=== PATIENT | female | born 2000 | race Caucasian/White ===

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

== ENCOUNTER 2023-03-13 18:50 | Emergency (ER) | payer SELFPAY ==
--- NOTE | 2023-03-13 20:40 | RAD REPORT ---
EXAM DESCRIPTION: US - Abdomen Exam Limited - 03/13/2023 8:27 pm CLINICAL HISTORY: Abd pain;Nausea / vomiting COMPARISON: Abdomen Pelvis Wo Contrast dated 03/10/2021 FINDINGS: The gallbladder demonstrates shadowing gallstone. One of the stones is present at the gall bladder neck and appears immobile. No pericholecystic fluid or gallbladder wall thickening. The commo n bile duct is normal measuring 4 mm. The liver demonstrates no findings of intrahepatic biliary dilatation. IMPRESSION: Cholelithiasis. Though no sonographic evidence of acute cholecystitis identified at this time, a stone is impacted at the gallbladder neck. Very early or mild cholecystitis difficult to ent irely exclude.
[2023-03-13] MEDS ORDERED: ONDANSETRON 4 MG/2 ML VIAL ONE (21:11)
[2023-03-13 21:12] LABS: Hematocrit 37.6 % (36.0-45.0); Lymphocytes % 16.5 % (15.3-44.8); MCV 76.1 fL (80-100); MPV 7.1 fL (7.6-11.3); RBC Red Blood Cell Count 4.94 M/uL (3.86-4.86)
[2023-03-13] MEDS ORDERED: DICYCLOMINE HCL 20 MG/2 ML AMP IM ONE (21:12)
[2023-03-13] MEDS ORDERED: NA CHLORIDE 0.9% 1,000 ML ONE (21:12)
[2023-03-13] MEDS ORDERED: FAMOTIDINE 20 MG/2 ML VIAL IV ONE (21:12)
[2023-03-13 21:21] LABS: Urine Bacteria <20 /HPF (<20); Urine Bilirubin NEGATIVE (Negative); Urine Blood 1+ (Negative); Urine Clarity Clear (Clear); Urine Color Light-Yellow (Yellow); Urine Glucose NEGATIVE (Negative); Urine Mucus Slight /HPF (None Seen); Urine Protein 1+ (Negative); Urine Urobilinogen Normal (Normal)
[2023-03-13 21:32] LABS: Albumin 3.3 g/dL (3.4-5.0); Bilirubin Total 0.3 mg/dL (0.2-1.0); Potassium 3.9 mEq/L (3.5-5.1); Protein, Total 8.2 g/dL (6.4-8.2)
--- NOTE | 2023-03-13 22:31 | RAD REPORT ---
EXAM DESCRIPTION: CTAbdomen Pelvis W Contrast - 03/13/2023 10:19 pm CLINICAL HISTORY: NAUSEA / VOMITING COMPARISON: Abdomen Exam Limited dated 03/13/2023 TECHNIQUE: CT of the abdomen and pelvis was performed. All CT scans are performed using dose optimization technique as appropriate and may include automated exposure control or mA/KV adjustment according to patient size. FINDINGS: Lower chest: No acute abnormality. Mild circumferential thickened distal esophagus suggest ing esophagitis. Liver: No acute abnormality or suspicious lesions. Biliary: No biliary ductal dilatation. Stomach: No significant focal abnormality. Duodenum: No significant focal abnormality. Pancreas: No significant abnormality. Spleen: No significant abnormality. Adrenal: No suspicious lesions. Kidney/ureter: No hydronephrosis. No renal calculi. Normal appendix. Retroperitoneum: No retroperitoneal adenopathy. Vascular: No aneurysm. Bowel: No significant focal abnormality. Peritoneum: No ascites or free air. Bladder: Grossly unremarkable. Reproductive: Simple appearing left adnexal cyst measuring 4.5 cm. In a premenopausal female, this do es not require follow-up. Bones: No acute fracture. Other: n/a IMPRESSION: No acute intra-abdominal or pelvic finding. Normal appendix.
--- NOTE | 2023-03-13 23:01 | EDPHYS ---
Physician Documentation [facility] Name: Sherri Robbins Age: 22 yrs Sex: Female : 2000 Arrival Date: 03/13/2023 Time: 18:50 Bed 16 Private MD: ED Physician Chuy Alanis HPI: 03/13 19:25 This 22 yrs old Female presents to ER via Ambulatory with complaints of Abdominal Pain, cp Nausea/Vomiting. 19:25 The patient presents with abdominal pain in the upper abdomen. cp 19:25 Onset: The symptoms/episode began/occurred this morning, about 0400. cp 19:25 The symptoms radiate to back. Associated signs and symptoms: Pertinent positives: cp nausea and vomiting, diarrhea, Pertinent negatives: fever, palpitations, vomiting blood. The symptoms are described as constant. Severity of pain: in the emergency department the pain is unchanged despite home interventions. Historical: - Allergies: 19:19 Codeine; nj1 - PMHx: 19:19 GALLSTONES; nj1 - PSHx: 19:19 None; nj1 - Immunization history:: Client reports receiving the 2nd dose of the Covid vaccine. - Social history:: Smoking status: Reported history of juuling and/or vaping. ROS: 19:30 Constitutional: Negative for body aches, chills, fever. cp 19:30 Eyes: Negative for injury, pain, redness, and discharge. cp 19:30 Cardiovascular: Negative for chest pain, palpitations. 19:30 Respiratory: Negative for cough, shortness of breath, wheezing. 19:30 Abdomen/GI: Positive for abdominal pain, nausea and vomiting, Negative for diarrhea, constipation, hematemesis. Exam: 19:33 Constitutional: The patient appears in no acute distress, alert, awake, non-toxic, well cp developed, well nourished, obese, uncomfortable. 19:33 Head/Face: Normocephalic, atraumatic. cp 19:33 Eyes: Periorbital structures: appear normal, Conjunctiva: normal, no exudate, no injection, Sclera: no appreciated abnormality, Lids and lashes: appear normal, bilaterally. 19:33 ENT: External ear(s): are unremarkable, Nose: is normal, Mouth: Lips: moist, Oral mucosa: pink and intact, moist, Posterior pharynx: is normal, airway is patent, no erythema, no exudate. 19:33 Neck: ROM/movement: is normal, is supple, without pain, no range of motions limitations. Vital Signs: 19:16 BP 133 / 72; Pulse 82; Resp 18; Temp 97.5(TE); Pulse Ox 98% on R/A; Weight 129.27 kg; nj1 Height 5 ft. 2 in. ; Pain 6/10; 23:17 BP 108 / 54; Pulse 77; Resp 16; Pulse Ox 97% on R/A; jb4 19:16 Body Mass Index 52.13 (129.27 kg, 157.48 cm) nj1 19:16 Pain Scale: Adult nj1 MDM: 19:20 Patient medically screened. иван 21:00 Differential diagnosis: cholecystitis, Cholelithiasis, gastritis, pancreatitis, Peptic cp Ulcer Disease, Perf. Duodenal Ulcer, Perf. Gastric Ulcer, Pyelonephritis, Ureterolithiasis, urinary tract infection. 23:00 Data reviewed: vital signs, nurses notes, lab test result(s), radiologic studies, CT cp scan, plain films. 23:00 Consideration of Admission/Observation Escalation of care including cp admission/observation considered. I considered the following discharge prescriptions or medication management in the emergency department Medications were administered in the Emergency Department. See MAR. Counseling: I had a detailed discussion with the patient and/or guardian regarding: the historical points, exam findings, and any diagnostic results supporting the discharge/admit diagnosis, lab results, radiology results, the need for outpatient follow up, a general surgeon, to return to the emergency department if symptoms worsen or persist or if there are any questions or concerns that arise at home. Response to treatment: the patient's symptoms have markedly improved after treatment, and as a result, I will discharge patient. ED course: VSS. Pain and nausea markedly improved. Will discharge to home for continued monitoring. 03/13 19:19 Order name: CBC with Diff; Complete Time: 21:42 cp 03/13 21:42 Interpretation: Normal except: WBC 12.30; RBC 4.94; MCV 76.1; MCH 24.3; RDW 16.8; MPV cp 7.1; ODIN% 77.0; NEUT A 9.4. 03/13 19:19 Order name: CMP; Complete Time: 21:42 cp 03/13 21:42 Interpretation: Normal except: NA 134; ALT 61. cp 03/13 19:19 Order name: Lipase; Complete Time: 21:42 cp 03/13 19:19 Order name: Test, Urine; Complete Time: 21:42 cp 03/13 19:19 Order name: Urinalysis w/ reflexes; Complete Time: 21:42 cp 03/13 19:59 Order name: US Abdomen Limited: gallbladder; Complete Time: 20:43 cp 03/13 21:45 Order name: CT Abd/Pelvis - IV Contrast Only; Complete Time: 22:44 cp 03/13 19:19 Order name: IV Saline Lock; Complete Time: 21:21 cp 03/13 19:19 Order name: Labs collected and sent; Complete Time: 21:21 cp 03/13 22:45 Order name: PO challenge; Complete Time: 23:15 cp Administered Medications: 21:20 Drug: Dicyclomine IM 20 mg Route: IM; Site: left gluteus; jb4 21:21 Drug: NS 0.9% IV 1000 ml Route: IV; Rate: 1 bolus; Site: left antecubital; jb4 21:21 Drug: Famotidine IVP 20 mg Route: IVP; Site: left antecubital; jb4 21:21 Drug: Ondansetron IVP 4 mg Route: IVP; Site: left antecubital; jb4 Disposition Summary: 03/13/23 23:00 Discharge Ordered Location: Home cp Problem: new cp Symptoms: have improved cp Condition: Stable cp Diagnosis - Nausea with vomiting, unspecified cp - Other cholelithiasis without obstruction cp Followup: cp - With: Tyler Collins MD - When: 2 - 3 days - Reason: Recheck today's complaints Discharge Instructions: - Discharge Summary Sheet cp - Nausea and Vomiting, Adult cp - Cholelithiasis cp Forms: - Medication Reconciliation Form cp - Thank You Letter cp - Antibiotic Education cp - Prescription Opioid Use cp Prescriptions: - Protonix 40 mg Oral Tablet - take 1 tablet by ORAL route once daily; 30 tablet; Refills: 0, Product cp Selection Permitted - Zofran 4 mg Oral Tablet - take 1 tablet by ORAL route every 12 hours As needed; 20 tablet; Refills: 0, cp Product Selection Permitted Signatures: Dispatcher [employer] EDChuy Sanders MD MD cha Page, Corey, PA PA cp Khang La RN RN jb4 Isela Willett RN RN nj1 Corrections: (The following items were deleted from the chart) 21:42 21:42 Normal except: NA 134. cp cp
--- NOTE | 2023-03-13 23:01 | ER ---
Nurse's Notes [facility] Name: Sherri Robbins Age: 22 yrs Sex: Female : 2000 Arrival Date: 03/13/2023 Time: 18:50 Bed 16 Private MD: Diagnosis: Nausea with vomiting, unspecified;Other cholelithiasis without obstruction Presentation: 03/13 19:16 Chief complaint: Patient states: Upper abdominal pain since 4am today. Vomited about 25 nj1 times since. History of gallstones. Coronavirus screen: Vaccine status: Patient reports receiving the 2nd dose of the covid vaccine. Ebola Screen: Patient denies travel to an Ebola-affected area in the 21 days before illness onset. Initial Sepsis Screen: Does the patient meet any 2 criteria? No. Patient's initial sepsis screen is negative. Does the patient have a suspected source of infection? No. Patient's initial sepsis screen is negative. Risk Assessment: Do you want to hurt yourself or someone else? Patient reports no desire to harm self or others. Onset of symptoms was March 13, 2023 at 04:00. 19:16 Method Of Arrival: Ambulatory [facility] 19:16 Acuity: TIMO 3 nj1 Historical: - Allergies: 19:19 Codeine; nj1 - PMHx: 19:19 GALLSTONES; nj1 - PSHx: 19:19 None; nj1 - Immunization history:: Client reports receiving the 2nd dose of the Covid vaccine. - Social history:: Smoking status: Reported history of juuling and/or vaping. Screenin:17 [facility] ED Fall Risk Assessment (Adult) History of falling in the last 3 months, jb4 including since admission No falls in past 3 months (0 pts) Confusion or Disorientation No (0 pts). Abuse screen: Denies threats or abuse. Nutritional screening: No deficits noted. Tuberculosis screening: No symptoms or risk factors identified. Assessment: 20:30 General: Appears in no apparent distress. comfortable, Behavior is calm, cooperative, jb4 appropriate for age. Pain: Complains of pain in right upper quadrant Pain does not radiate. Pain currently is 8 out of 10 on a pain scale. Neuro: Level of Consciousness is awake, alert, obeys commands, Oriented to person, place, time, situation. Cardiovascular: Patient's skin is warm and dry. Respiratory: Airway is patent Respiratory effort is even, unlabored, Respiratory pattern is regular, symmetrical. GI: Abdomen is non-distended, obese, Reports nausea, vomiting. : No signs and/or symptoms were reported regarding the genitourinary system. EENT: No signs and/or symptoms were reported regarding the EENT system. Derm: Skin is intact, Skin is pink, warm \T\ dry. Musculoskeletal: Circulation, motion, and sensation intact. Range of motion: intact in all extremities. 22:00 Reassessment: Patient appears in no apparent distress at this time. Patient and/or jb4 family updated on plan of care and expected duration. Pain level reassessed. Patient is alert, oriented x 3, equal unlabored respirations, skin warm/dry/pink. 23:17 Reassessment: Patient appears in no apparent distress at this time. Patient and/or jb4 family updated on plan of care and expected duration. Pain level reassessed. Patient is alert, oriented x 3, equal unlabored respirations, skin warm/dry/pink. Vital Signs: 19:16 BP 133 / 72; Pulse 82; Resp 18; Temp 97.5(TE); Pulse Ox 98% on R/A; Weight 129.27 kg; nj1 Height 5 ft. 2 in. ; Pain 6/10; 23:17 BP 108 / 54; Pulse 77; Resp 16; Pulse Ox 97% on R/A; jb4 19:16 Body Mass Index 52.13 (129.27 kg, 157.48 cm) nj1 19:16 Pain Scale: Adult ma1 ED Course: 18:53 Patient arrived in ED. ts1 18:56 Chuy Mendoza PA is PHCP. cp 18:56 Chuy Alanis MD is Attending Physician. cp 19:19 Triage completed. nj1 19:19 Arm band placed on right wrist. nj1 20:29 US Abdomen Limited: gallbladder In Process Unspecified. EDMS 20:48 Khang La, AGATHA is Primary Nurse. jb4 20:53 Initial lab(s) drawn, by me, sent to lab. Inserted saline lock: 18 gauge in left jb4 antecubital area, using aseptic technique. Blood collected. 22:20 CT Abd/Pelvis - IV Contrast Only In Process Unspecified. EDMS 23:00 Tyler Collins MD is Referral Physician. cp 23:17 Patient has correct armband on for positive identification. Bed in low position. Call jb4 light in reach. Side rails up X 1. Client placed on continuous cardiac and pulse oximetry monitoring. NIBP monitoring applied. 23:17 No provider procedures requiring assistance completed. IV discontinued, intact, jb4 bleeding controlled, No redness/swelling at site. Pressure dressing applied. Administered Medications: 21:20 Drug: Dicyclomine IM 20 mg Route: IM; Site: left gluteus; jb4 21:21 Drug: NS 0.9% IV 1000 ml Route: IV; Rate: 1 bolus; Site: left antecubital; jb4 21:21 Drug: Famotidine IVP 20 mg Route: IVP; Site: left antecubital; jb4 21:21 Drug: Ondansetron IVP 4 mg Route: IVP; Site: left antecubital; jb4 Outcome: 23:00 Discharge ordered by MD. cp 23:17 Discharged to home ambulatory. jb4 23:17 Condition: stable 23:17 Discharge instructions given to patient, Instructed on discharge instructions, follow up and referral plans. medication usage, Demonstrated understanding of instructions, follow-up care, medications, Prescriptions given X 2. 23:18 Patient left the ED. jb4 Signatures: Dispatcher [employer] EDMS Chuy Mendoza PA PA cp Bryson, James, RN RN jb4 Isela Willett RN RN nj1 Shira Flower, WALTER PAS ts1
[2023-03-13 23:22] VITALS: TEMP 97.5
[2023-03-13 23:24] VITALS: BP 108/54; O2SAT 97
== END 2023-03-13 23:18 | disposition home or self-care (01) ==
LOC: ER 18:50
DX: K80.80 Other cholelithiasis without obstruction (principal); Z88.5 Allergy status to narcotic agent
CPT/HCPCS: 36415; 74177; 76705; 80053; 81001; 81025; 83690; 85025; 96372; 96374; 96375; 99284; J0500; J2405; J7030; Q9967

== ENCOUNTER 2023-04-24 00:09 | Emergency (ER) | payer SELFPAY ==
[2023-04-24] MEDS ORDERED: ONDANSETRON 4 MG/2 ML VIAL ONE (01:17)
[2023-04-24] MEDS ORDERED: NA CHLORIDE 0.9% 1,000 ML ONE (01:17)
[2023-04-24] MEDS ORDERED: MORPHINE 4 MG/ML SYR ONE (01:17)
[2023-04-24 01:30] LABS: Absolute Lymphocytes (CBC) 2.9 K/uL (0.7-4.9); Hematocrit 36.6 % (36.0-45.0); Lymphocytes % 32.3 % (15.3-44.8); MCV 75.9 fL (80-100); MPV 7.5 fL (7.6-11.3); RBC Red Blood Cell Count 4.83 M/uL (3.86-4.86)
[2023-04-24 01:34] LABS: Specific Gravity 1.045 (1.005-1.030)
[2023-04-24 01:36] LABS: Urine Bacteria None Seen /HPF (<20); Urine Mucus 4+ /HPF (None Seen); Urine RBC >50 /HPF (None Seen)
[2023-04-24 01:36] LABS: Protime INR 1.07
[2023-04-24 01:38] LABS: Specific Gravity 1.045 (1.005-1.030); Urine Bilirubin NEGATIVE (Negative); Urine Blood 3+ (OVER) (Negative); Urine Clarity Turbid (Clear); Urine Color Dark-Red (Yellow); Urine Glucose NEGATIVE (Negative); Urine Protein 2+ (Negative); Urine Urobilinogen Normal (Normal)
[2023-04-24 01:47] LABS: Albumin 3.4 g/dL (3.4-5.0); Bilirubin Total 0.2 mg/dL (0.2-1.0); Potassium 3.7 mEq/L (3.5-5.1)
--- NOTE | 2023-04-24 04:02 | ER ---
Nurse's Notes [facility] Name: Sherri Robbins Age: 22 yrs Sex: Female : 2000 Arrival Date: 04/24/2023 Time: 00:09 Bed 7 Private MD: Diagnosis: Other and unspecified ovarian cysts Presentation: 04/24 00:50 Chief complaint: Patient states: I have been having lower abdominal pain since jb4 yesterday with some nausea. Coronavirus screen: At this time, the client does not indicate any symptoms associated with coronavirus-19. Ebola Screen: No symptoms or risks identified at this time. Initial Sepsis Screen: Does the patient meet any 2 criteria? No. Patient's initial sepsis screen is negative. Does the patient have a suspected source of infection? No. Patient's initial sepsis screen is negative. Risk Assessment: Do you want to hurt yourself or someone else? Patient reports no desire to harm self or others. Onset of symptoms was April 24, 2023. Transition of care: patient was not received from another setting of care. 00:50 Method Of Arrival: Ambulatory jb4 00:50 Acuity: TIMO 3 jb4 Historical: - Allergies: 00:52 Codeine; jb4 - PMHx: 00:52 GALLSTONES; jb4 - Immunization history:: Adult Immunizations up to date. - Social history:: Smoking status: Reported history of juuling and/or vaping. Screenin:55 [facility] ED Fall Risk Assessment (Adult) History of falling in the last 3 months, jb4 including since admission No falls in past 3 months (0 pts) Confusion or Disorientation No (0 pts) Score/Fall Risk Level 0 - 2 = Low Risk Oriented to surroundings, Maintained a safe environment. Abuse screen: Denies threats or abuse. Nutritional screening: No deficits noted. Tuberculosis screening: No symptoms or risk factors identified. Assessment: 00:52 General: Appears in no apparent distress. comfortable, Behavior is calm, cooperative, jb4 appropriate for age. Pain: Complains of pain in right lower quadrant and left lower quadrant Pain does not radiate. Pain currently is 7 out of 10 on a pain scale. Neuro: Level of Consciousness is awake, alert, obeys commands, Oriented to person, place, time, situation. Cardiovascular: Patient's skin is warm and dry. Respiratory: Airway is patent Respiratory effort is even, unlabored, Respiratory pattern is regular, symmetrical. GI: Abdomen is non-distended, obese. : No signs and/or symptoms were reported regarding the genitourinary system. EENT: No signs and/or symptoms were reported regarding the EENT system. Derm: Skin is intact, Skin is pink, warm \T\ dry. Musculoskeletal: Circulation, motion, and sensation intact. Range of motion: intact in all extremities. 02:00 Reassessment: Patient appears in no apparent distress at this time. Patient and/or jb4 family updated on plan of care and expected duration. Pain level reassessed. Patient is alert, oriented x 3, equal unlabored respirations, skin warm/dry/pink. 03:46 Reassessment: Patient appears in no apparent distress at this time. Patient and/or jb4 family updated on plan of care and expected duration. Pain level reassessed. Patient is alert, oriented x 3, equal unlabored respirations, skin warm/dry/pink. 04:24 Reassessment: D/c pending completion of IV fluids. jb4 Vital Signs: 00:50 BP 140 / 80; Pulse 85; Resp 16; Temp 98.6(O); Pulse Ox 98% on R/A; Weight 119.29 kg jb4 (R); Height 5 ft. 3 in. ; Pain 7/10; 03:46 BP 108 / 57; Pulse 57; Resp 16; Pulse Ox 96% on R/A; jb4 00:50 Body Mass Index 46.59 (119.29 kg, 160.02 cm) jb4 00:50 Pain Scale: Adult 4 ED Course: 00:26 Patient arrived in ED. jj6 00:27 Chuy Mendoza PA is PHCP. cp 00:27 Joey Brown MD is Attending Physician. cp 00:50 Khang La, AGATHA is Primary Nurse. jb4 00:52 Triage completed. jb4 00:52 Arm band placed on right wrist. jb4 00:55 Patient has correct armband on for positive identification. Bed in low position. Call jb4 light in reach. Side rails up X 1. Client placed on continuous cardiac and pulse oximetry monitoring. NIBP monitoring applied. 00:55 No provider procedures requiring assistance completed. jb4 01:23 Initial lab(s) drawn, by me, sent to lab. Urine collected: clean catch specimen, wm sediment noted. Inserted saline lock: 20 gauge in right antecubital area, using aseptic technique. Blood collected. 02:42 CT Abd/Pelvis - IV Contrast Only In Process Unspecified. EDMS 04:47 IV discontinued, intact, bleeding controlled, No redness/swelling at site. Pressure jb4 dressing applied. Administered Medications: 01:25 Drug: NS 0.9% IV 1000 ml Route: IV; Rate: 1 bolus; Site: right antecubital; jb4 01:25 Drug: Ondansetron IVP 4 mg Route: IVP; Site: right antecubital; jb4 01:25 Drug: morphine IVP or IV 4 mg Route: IVP; Infused Over: 4 mins; Site: right antecubital;jb4 Outcome: 04:02 Discharge ordered by . sheila 04:24 Discharge instructions given to patient, Instructed on discharge instructions, follow jb4 up and referral plans. medication usage, Demonstrated understanding of instructions, follow-up care, medications, Prescriptions given X 1. 04:47 Discharged to home ambulatory, with friend. jb4 04:47 Condition: stable 04:47 Patient left the ED. jb4 Signatures: Dispatcher [employer] EDMS Chuy Mendoza PA PA cp Bryson, James, AGATHA RN [email or web address] Amisha Kay Jennifer jj6
--- NOTE | 2023-04-24 04:02 | EDPHYS ---
Physician Documentation [facility] Name: Sherri Robbins Age: 22 yrs Sex: Female : 2000 Arrival Date: 04/24/2023 Time: 00:09 Bed 7 Private MD: ED Physician Joey Brown HPI: 04/24 00:52 This 22 yrs old Female presents to ER via Unassigned with complaints of Abdominal Pain. cp 00:52 The patient presents with abdominal pain in the lower abdomen. Onset: The cp symptoms/episode began/occurred yesterday, and became worse today. The symptoms do not radiate. Associated signs and symptoms: Pertinent positives: nausea, vaginal bleeding, Pertinent negatives: diarrhea, vomiting. The symptoms are described as crampy, cutting. Severity of pain: in the emergency department the pain is unchanged despite home interventions. Historical: - Allergies: 00:52 Codeine; jb4 - PMHx: 00:52 GALLSTONES; jb4 - Immunization history:: Adult Immunizations up to date. - Social history:: Smoking status: Reported history of juuling and/or vaping. ROS: 00:55 Constitutional: Negative for body aches, chills, fever, poor PO intake. cp 00:55 Abdomen/GI: Positive for abdominal pain, nausea, Negative for vomiting, diarrhea, constipation, black/tarry stool, rectal bleeding. 00:55 : Positive for vaginal bleeding, Negative for urinary symptoms. 00:55 ENT: Negative for drainage from ear(s), ear pain, sore throat, difficulty swallowing, cp difficulty handling secretions. 00:55 Cardiovascular: Negative for chest pain, palpitations. 00:55 Respiratory: Negative for cough, shortness of breath, wheezing. 00:55 Back: Negative for pain at rest, pain with movement. 00:55 All other systems are negative. cp Exam: 01:00 Constitutional: The patient appears in no acute distress, alert, awake, cp non-diaphoretic, non-toxic, well developed, well nourished, obese, uncomfortable. 01:00 Head/Face: Normocephalic, atraumatic. cp 01:00 Eyes: Periorbital structures: appear normal, Conjunctiva: normal, no exudate, no injection, Sclera: no appreciated abnormality, Lids and lashes: appear normal, bilaterally. 01:00 ENT: External ear(s): are unremarkable, Nose: is normal, Mouth: Lips: moist, Oral mucosa: pink and intact, moist, Posterior pharynx: is normal, airway is patent, no erythema, no exudate. 01:00 Neck: ROM/movement: is normal, is supple, without pain, no range of motions limitations. 01:00 Chest/axilla: Inspection: normal. 01:00 Cardiovascular: Rate: normal, Rhythm: regular. 01:00 Respiratory: the patient does not display signs of respiratory distress, Respirations: normal, no use of accessory muscles, no retractions, labored breathing, is not present, Breath sounds: are clear throughout, no decreased breath sounds, no stridor, no wheezing. 01:00 Abdomen/GI: Inspection: obese Bowel sounds: active, all quadrants, Palpation: soft, in all quadrants, moderate abdominal tenderness, in the right lower quadrant and left lower quadrant, rebound tenderness, is not appreciated, involuntary guarding, is not appreciated. 01:00 Back: pain, is absent, ROM is normal, CVA tenderness, is absent. Vital Signs: 00:50 BP 140 / 80; Pulse 85; Resp 16; Temp 98.6(O); Pulse Ox 98% on R/A; Weight 119.29 kg jb4 (R); Height 5 ft. 3 in. ; Pain 7/10; 03:46 BP 108 / 57; Pulse 57; Resp 16; Pulse Ox 96% on R/A; jb4 00:50 Body Mass Index 46.59 (119.29 kg, 160.02 cm) jb4 00:50 Pain Scale: Adult jb4 MDM: 00:31 Patient medically screened. cp 04:01 Data reviewed: vital signs, nurses notes, lab test result(s), radiologic studies, CT cp scan. 04:01 Differential diagnosis: appendicitis, cholecystitis, Cholelithiasis, gastritis, Ovarian cp Torsion, Pelvic Inflammatory Disease, Pyelonephritis, Tubal Ovarian Abcess, Ureterolithiasis, urinary tract infection. Counseling: I had a detailed discussion with the patient and/or guardian regarding: the historical points, exam findings, and any diagnostic results supporting the discharge/admit diagnosis, lab results, radiology results, to return to the emergency department if symptoms worsen or persist or if there are any questions or concerns that arise at home. Response to treatment: the patient's symptoms have markedly improved after treatment, and as a result, I will discharge patient. Special discussion: Based on the patient's Hx, exam, and Dx evaluation, there is no indication for emergent surgery or inpatient Tx. It is understood by the patient/guardian that if the Sx's persist or worsen they need to return immediately for re-evaluation. 04/24 00:55 Order name: CBC with Diff; Complete Time: 02:08 cp 04/24 02:08 Interpretation: Normal except: HGB 11.8; MCV 75.9; MCH 24.4; RDW 16.0; MPV 7.5. cp 04/24 00:55 Order name: CMP; Complete Time: 02:08 cp 04/24 02:09 Interpretation: Normal except: CL 109; ALT 81; GLOB 4.6; A/G 0.7. cp 04/24 00:55 Order name: Lipase; Complete Time: 02:08 cp 04/24 00:55 Order name: Test, Urine; Complete Time: 02:08 cp 04/24 00:55 Order name: Urinalysis w/ reflexes; Complete Time: 02:08 cp 04/24 00:55 Order name: PT-INR; Complete Time: 02:08 cp 04/24 00:55 Order name: CT Abd/Pelvis - IV Contrast Only cp 04/24 00:55 Order name: IV Saline Lock; Complete Time: 01:24 cp 04/24 00:55 Order name: Labs collected and sent; Complete Time: 01:24 cp Administered Medications: 01:25 Drug: NS 0.9% IV 1000 ml Route: IV; Rate: 1 bolus; Site: right antecubital; jb4 01:25 Drug: Ondansetron IVP 4 mg Route: IVP; Site: right antecubital; jb4 01:25 Drug: morphine IVP or IV 4 mg Route: IVP; Infused Over: 4 mins; Site: right antecubital;jb4 Disposition: 19:30 Co-signature as Attending Physician, Joey Brown MD I agree with the assessment and kdr plan of care. Disposition Summary: 04/24/23 04:02 Discharge Ordered Location: Home cp Problem: new cp Symptoms: have improved cp Condition: Stable cp Diagnosis - Other and unspecified ovarian cysts cp Followup: cp - With: Private Physician - When: 1 week - Reason: Recheck today's complaints Discharge Instructions: - Discharge Summary Sheet cp - Ovarian Cyst cp Forms: - Medication Reconciliation Form cp - Thank You Letter cp - Antibiotic Education cp - Prescription Opioid Use cp - [email or web address] cp Prescriptions: - Diclofenac Sodium 75 mg Oral Tablet Sustained Release - take 1 tablet by ORAL route 2 times per day; 30 tablet; Refills: 0, Product cp Selection Permitted Signatures: Dispatcher [employer] EDJoey Paniagua MD MD kdr Page, Corey, PA PA cp Khang La, RN RN jb4
[2023-04-24 04:56] VITALS: TEMP 98.6
[2023-04-24 05:49] VITALS: BP 108/57; O2SAT 96
--- NOTE | 2023-04-25 15:38 | RAD REPORT ---
EXAM DESCRIPTION: CT - Abdomen Pelvis W Contrast - 04/24/2023 6:28 am CLINICAL HISTORY: Lower abdomen pain COMPARISON: None. TECHNIQUE: CT ABDOMEN PELVIS WITH IV CONTRAST on 04/24/2023 12:55 AM CDT This exam was performed according to our departmental dose-optimization program, which includes autom ated exposure control, adjustment of the mA and/or kV according to patient size and/or use of iterati ve reconstruction technique. FINDINGS: Lower lungs are clear. Abdomen: The liver is normal in appearance. There is no biliary dilatation. Gallbladder is decompress ed. The pancreas and spleen are normal in appearance. The adrenal glands and kidneys are unremarkable . Abdominal aorta is normal in course and caliber without aneurysm. There is no free air. There is no r etroperitoneal adenopathy. Pelvis: There is no bowel obstruction. Urinary bladder is unremarkable. There is no free fluid. Uteru s is normal in size. Left ovarian cyst measures 4.6 cm. Appendix is normal. Skeleton: There are no acute osseous findings. No suspicious bony lesions. IMPRESSION: No acute inflammatory process. 4.6 cm left ovarian simple-appearing cyst. No follow-up imaging is recommended. Reference: JACR 2019;17(2):[id number] Electronically signed by: Satya Middleton MD 04/24/2023 3:43 AM CDT Due to temporary technical issues with the PACS/Fluency reporting system, reports are being signed by the in house radiologist without review as a courtesy to ensure prompt reporting. The interpreting r adiologist is fully responsible for the content of the report.
== END 2023-04-24 04:47 | disposition home or self-care (01) ==
LOC: ER 00:09
DX: N83.299 Other ovarian cyst, unspecified side (principal)
CPT/HCPCS: 36415; 74177; 80053; 81001; 81025; 83690; 85025; 85610; 96374; 96375; 99284; J2405; J7030; Q9967